=== PATIENT | male | born 1975 | race Caucasian/White ===

== ENCOUNTER 2024-04-28 06:00 | Inpatient (IN) | payer OTHER, SELFPAY ==
[2024-04-19 08:48] VITALS: BMI 29.4
[2024-04-28] VITALS (7 sets, daily range): BP systolic 109–153; BP diastolic 60–88; PULSE 74–100; RESP 16–18; TEMP 36.2–36.7; O2SAT 93–98; BMI 29.4
--- NOTE | 2024-04-28 | DI.RAD.S_ITS ---
PROCEDURE: XR SHOULDER LT 1V INDICATIONS: POST OP LEFT SHOULDER TECHNIQUE: One-view of the shoulder acquired. COMPARISON: [facility], CR, XR SHOULDER 2+ VIEWS LEFT, 01/13/2024, 8:47. FINDINGS: Bones: Patient is status post reversed left total shoulder arthroplasty. Hardware components are in expected positions. No acute osseous abnormality. Soft tissues: Postsurgical changes are seen in the soft tissues surrounding the shoulder. IMPRESSION: Expected immediate postoperative appearance of a left reverse total shoulder arthroplasty. Approved by: Johnson Altamirano M.D. on 04/28/2024 at 13:49
--- NOTE | 2024-04-28 | DI.RAD.S_ITS ---
PROCEDURE: XR SHOULDER LT 1V INDICATIONS: INTRA OP LEFT SHOULDER TECHNIQUE: 1 view of the shoulder were acquired. COMPARISON: [facility], CR, XR SHOULDER LT 1V, 04/28/2024, 11:56. [facility] Outside Film, CT, CT UPPER EXTREMITY LEFT WITHOUT CONTRAST, 02/25/2024, 18:47. [facility] Outside [facility], CR, XR SHOULDER 2+ VIEWS LEFT, 01/13/2024, 8:47. FINDINGS: Intraoperative image demonstrating left shoulder arthroplasty. There is good anatomic alignment. Hardware appears intact. IMPRESSION: Intraoperative shoulder arthroplasty. Dictated by: Emmie Call M.D. on 04/29/2024 at 11:43 Approved by: Emmie Call M.D. on 04/29/2024 at 11:44
[2024-04-28] MEDS: LACTATED RINGERS 1,000 ML 42 ML IV ×2 (07:00→11:16)
[2024-04-28] MEDS: ACETAMINOPHEN 325 MG TABLET 975 MG PO (07:09)
--- NOTE | 2024-04-28 07:21 | PM.HP.1 ---
History of Present Illness History of Present Illness Date Patient Seen: 04/28/24 Time Patient Seen: 07:21 Chief complaint: Left Total Shoulder Arthroplasty - Revision 04/28 Narrative: Fred was 48-year-old male with a history of anatomic left total shoulder arthroplasty. This has unfortunately gone onto failure due to rotator cuff insufficiency. We previously discussed in the office conversion to a reverse total shoulder arthroplasty. Patient has had no changes in his symptoms and still has left shoulder dysfunction. [facility] Medical History Ankylosing spondylitis History of COVID-19 (~09/2021) Concussion KARLA (obstructive sleep apnea) Osteoporosis HTN (hypertension) Asthma COPD (chronic obstructive pulmonary disease) GERD (gastroesophageal reflux disease) Arthritis Surgical History (Updated 04/19/24 @ 09:16 by Maryjane Hart RN) History of total left knee replacement (04/2023) H/O vasectomy Hx of LASIK History of total replacement of left shoulder joint (09/2013) Social History household members: spouse Smoking Status: Former smoker alcohol intake: current Meds Home Medications and Allergies Home Medications Medication Instructions Recorded Confirmed Type acetaminophen 500 mg tablet 1,000 mg PO DAILY PRN Pain 04/19/24 04/28/24 History amlodipine 10 mg tablet 10 mg PO DAILY 04/19/24 04/28/24 History celecoxib 200 mg capsule 200 mg PO DAILY PRN Pain 04/19/24 04/28/24 History fluticasone 250 mcg-salmeterol 50 1 inh inhalation QAM 04/19/24 04/28/24 History mcg/dose blistr powdr for inhalation (Advair Diskus) folic acid 1 mg tablet 1 mg PO DAILY 04/19/24 04/28/24 History ibuprofen 200 mg tablet 600 mg PO DAILY PRN Pain 04/19/24 04/28/24 History lisinopril 40 mg tablet 40 mg PO BEDTIME 04/19/24 04/28/24 History methotrexate sodium 2.5 mg tablet 15 mg PO QWEEK 04/19/24 04/28/24 History omeprazole 40 mg capsule,delayed 40 mg PO BID 04/19/24 04/19/24 History release Allergies Allergy/AdvReac Type Severity Reaction Status Date / Time hydrocodone [From Vicodin] AdvReac Mild Gastrointestinal Verified 04/28/24 07:00 Upset Review of Systems Review of Systems ROS: Yes All systems reviewed with the patient and are negative except as otherwise documented Exam Vital Signs (past 8 hours): - 04/28/24 06:42 Temperature 97.2 F L Pulse Rate 83 Respiratory Rate 16 Blood Pressure 153/88 H Pulse Oximetry 98 Oxygen Delivery Method Room Air Oxygen Delivery Method Room Air Narrative Exam Narrative: HEENT: Head atraumatic eyes anicteric moist mucous membranes Cardiovascular: Palpable peripheral pulses extremities are warm and well perfused Respiratory: Breathing comfortably on room air Psychiatric: Appropriate mood and affect Neuro: No acute deficits Musculoskeletal: Exam of left upper extremity demonstrates inability to raise his arm over 90? due to weakness. Good musculature. Sensation intact to light touch median, radial, ulnar, axillary nerve distributions. Assessment & Plan Assessment & Plan narrative: Assessment: 48-year-old male with left anatomic total shoulder arthroplasty here for conversion to a reverse Plan: Conversion to reverse total shoulder arthroplasty
[2024-04-28] MEDS: CEFAZOLIN 2 GM/100 ML PREMIX 100 ML IV (08:05)
--- NOTE | 2024-04-28 08:22 | SUR.OPER ---
Beach chair with Maquet shoulder positioner. Lower body on padded OR bed. Head in foam padded head cradle, secured with straps. Non-operative arm padded and secured over abdomen with tape. Pillow under knees. Safety belt at thigh. Cloth tape over blanket over lower legs.
[2024-04-28] MEDS: BUPIVACAINE 0.25% (PF) 30 ML, EPINEPHrine 0.15 MG INJ (08:27)
--- NOTE | 2024-04-28 20:37 | PM.OP.1 ---
Operative Date/Time/Diagnoses Date of procedure: 04/28/24 Time of procedure: 20:37 Pre-op diagnosis: Left failed anatomic shoulder arthroplasty Post-op diagnosis: same Procedure & Clinicians Procedure: Left revision shoulder replacement of glenoid and humeral side Same procedure as scheduled: Yes Indications: Indications: This is a 48-year-old male with a failed left anatomic total shoulder arthroplasty.? He has tried extensive nonoperative management including physical therapy and anterior deltoid strengthening.? 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 We previously discussed that the only reasonable approach for treating his failed shoulder would be a conversion to a reverse total shoulder arthroplasty.? The risks benefits and alternatives of the surgery were discussed.? Risks include bleeding, infection, damage to neurovascular structures, blood clots including pulmonary embolism, worsening of pain, stiffness, swelling, failure of surgery, and need for future surgery. No guarantees were made regarding outcomes. Surgeon: Rico Mcrae Carpentry Professional: Anny Call Anesthesia Type: General Operative Notes Findings: Findings: Loose glenoid with significant bone loss inferior at the inferior 2 pegs.? He did have rotator cuff tearing as well both in supraspinatus and infraspinatus.? Some detritus is noted throughout the shoulder Closure Type: primary Prosthetic devices, grafts, tissues, transplants, or devices: Implants: Biomet Medium augmented baseplate, central screw 6.5 mm x 25 mm in length Cancellous bone chips HSA fiber bone graft putty, 5 cc 40 mm humeral tray 0 offset Size 36 glenosphere Highly cross-linked polyethylene 36 mm diameter Estimated Blood Loss (mL): 100 Blood products transfused: none Procedure in detail: Procedure in detail: Patient was met in the preoperative holding area.? His left upper extremity was examined and marked with my initials.? We again went over the risk and benefits of surgery and he wished to go forward with surgery.? He received a interscalene block by anesthesia.? He was brought back to the operating room and placed into the beachchair position after smooth induction of anesthesia.? The left upper extremity was prepped and draped in the standard sterile fashion.? Timeout was performed and appropriate drying time was observed.? My initials were again confirmed on the left upper extremity. I began with a deltopectoral approach to the previous incision.? Plane between the deltoid and the pectoralis muscle was developed.? Subdeltoid adhesions were noted and released.? A large Derra retractor was placed under the the conjoined tendon, a Brown retractor was placed underneath the deltoid.? A subscapularis peel was performed and the previous implant was encountered after the shoulder was dislocated.? The axillary nerve was protected throughout the case.? Using a tuning fork instrument, the previous humeral head was removed.? Cultures were taken from 4 different locations and sent.? I then turned my attention to the glenoid.? The humerus was retracted posterior and the subscapularis also was freed from its adhesions.? The polyethylene glenoid was then removed using osteotome and rongeur.? A trefine was used to over ream the metal implant and then this was removed using a rongeur.? At this point cleaning of the glenoid was performed using a pituitary, a curette and a rongeur.? It was noted that there was significant bone loss throughout the inferior portion of the glenoid with an outer rim present Using a guide, and the use of fluoroscopy, a center guidepin was inserted through the previous center screw hole but had a different angle in order to catch more bone.? A half wedge was chosen in order to feel the inferior defect and capture as much bone contact posterior and superior to the midline of the implant.? I then touched the bone with a reamer in order to create a flat surface.? Last, I put bone graft and DBM putty into the defect and implanted the new baseplate.? The center drill screw was filled followed by peripheral screws.? Superior and inferior were placed in nonlocking fashion with good compression.? This achieved stable fixation.? A 36 glenosphere with 2.5 mm of inferior offset was then selected and impacted using the Cardona taper. I then turned my attention back to the humerus.? The bony edges were cleaned and I then trialed with several baseplate's with different offset till I was able to achieve stable reduction.? Before the final implant was impacted, a irrigation was performed with dilute Betadine. ?3 separate Neace sutures were then placed through the lesser tuberosity.? The final implants were impacted into the humerus and it was reduced.? The subscapularis was then repaired to the humerus using a modified racking hitch suture.? The deltopectoral interval was closed with a running Ethibond.? The skin was closed with Vicryl and nataliia. He was woken from anesthesia and transported to the postoperative recovery unit without any complications Complications: none Post-operative Condition: stable Disposition: PACU Plan for aftercare: Postoperative instructions: In a sling for 6 weeks.? No active forward elevation, no external rotation past neutral.? Aquacel dressing to remain on for 2 weeks.
== END 2024-04-28 13:24 | disposition home or self-care (01) | DRG 322 ==
PROVIDERS: Admitting Provider Orthopaedic Surgery; Referring Provider Orthopaedic Surgery; Visit Provider Orthopaedic Surgery
PROC: 0RPK0JZ Removal of Synthetic Substitute from Left Shoulder Joint, Open Approach (ICD-10-PCS; principal; 2024-04-28 07:45)
DX: T84.098A Other mechanical complication of other internal joint prosthesis, initial encounter (principal); M75.102 Unspecified rotator cuff tear or rupture of left shoulder, not specified as traumatic; M85.812 Other specified disorders of bone density and structure, left shoulder; Z96.612 Presence of left artificial shoulder joint
CPT/HCPCS: 64415; 73020; 76000; 87070; 87075; 87176; 87185; 87205; C1713; C1776; J0171; J0690; J1100; J2274; J2405; J2704; J3010